=== PATIENT | female | born 1985 | race Caucasian/White ===

== ENCOUNTER 2020-02-07 23:53 | Emergency (ER) | payer BC ==
[~2020-02-07] VITALS: Ht 185.4 cm; Wt 97.7 kg
[2020-02-08] MEDS ORDERED: GABA800T4 PO (00:08)
[2020-02-08] MEDS ORDERED: VICO10TA11 PO (00:08)
[2020-02-08] MEDS ORDERED: TRAM50TA2 PO (00:08)
[2020-02-08] MEDS ORDERED: SING10TA32 PO (00:08)
[2020-02-08] MEDS ORDERED: VALT500T PO (00:08)
[2020-02-08] MEDS ORDERED: NAPR220C14 PO (00:08)
[2020-02-08] MEDS ORDERED: AMPICILLIN SOD/SULBACTAM SOD 3 GM in D5W MINI-BAG PLUS 100 ML IV ONE (00:45)
[2020-02-08] MEDS ORDERED: NS 1,000 ML IV ONE (00:45)
[2020-02-08] MEDS ORDERED: dexameTHASONE 20MG/5ML VIAL (J1100 PER 1MG) IV ONE (00:45)
[2020-02-08 01:11] LABS: BASO % 0.4 % (0.0-1.0); EOS # 0.2 10^3/uL (0.0-0.5); EOS % 1.8 % (0.0-3.0); HEMATOCRIT 39.6 % (36.0-47.0); HEMOGLOBIN 13.3 g/dl (12.0-15.5); LYMPH # 2.3 10^3/uL (1.5-5.0); LYMPH % 24.4 % (24.0-44.0); MEAN CORPUSCULAR HEMOGLOBIN 34.3 pg (27.0-33.0); MEAN CORPUSCULAR HGB CONC 33.6 g/dl (32.0-36.5); MEAN CORPUSCULAR VOLUME 102.1 fl (80.0-96.0); MONO # 0.7 10^3/uL (0.0-0.8); MONO % 6.8 % (0.0-5.0); NEUTROPHILS # 6.4 10^3/uL (1.5-8.5); NEUTROPHILS % 66.3 % (36.0-66.0); PLATELET COUNT, AUTOMATED 207 10^3/uL (150-450); RED BLOOD COUNT 3.88 10^6/uL (4.00-5.40); WHITE BLOOD COUNT 9.6 10^3/uL (4.0-10.0)
[2020-02-08 01:30] LABS: ERYTHROCYTE SEDIMENTATION RATE 5 mm/hr (0-20)
[2020-02-08 01:36] LABS: ALBUMIN 3.6 GM/DL (3.2-5.2); ALT/SGPT 19 U/L (12-78); BILIRUBIN,DIRECT < 0.1 MG/DL (0.0-0.2); BILIRUBIN,TOTAL 0.3 MG/DL (0.2-1.0); C REACTIVE PROTEIN QUANTITATIV < 0.30 MG/DL (0.00-0.30)
[2020-02-08] MEDS ORDERED: ISOVUE-370 76% 100ML VIAL As Ordered ONE (01:59)
[2020-02-08] MEDS ORDERED: ONDANSETRON 4MG/2ML VIAL IV ONE (02:15)
--- NOTE | 2020-02-08 02:23 | REPVR ---
PROCEDURE INFORMATION: Exam: CT Neck With Contrast Exam date and time: 02/08/2020 2:05 AM Age: 34 years old Clinical indication: Mass, lump, or swelling in neck; Additional info: Right jaw pain/swelling TECHNIQUE: Imaging protocol: Computed tomography images of the neck with intravenous contrast. Radiation optimization: All CT scans at this facility use at least one of these dose optimization techniques: automated exposure control; mA and/or kV adjustment per patient size (includes targeted exams where dose is matched to clinical indication); or iterative reconstruction. Contrast material: ISOVUE 370; Contrast volume: 75 ml; Contrast route: INTRAVENOUS (IV); COMPARISON: No relevant prior studies available. FINDINGS: Limitations: Artifact arising from metallic dental hardware. Nasopharynx: Unremarkable. Oropharynx: Unremarkable. No significant tonsillar enlargement. Hypopharynx: Unremarkable. Larynx: Unremarkable. Normal epiglottis. Retropharyngeal space: Unremarkable. Submandibular/Parotid glands: Normal. Glands are normal in size. Thyroid: Normal. No enlarged or calcified nodules. Lymph nodes: Unremarkable. No lymphadenopathy. Trachea: Visualized trachea is unremarkable. Lungs: Unremarkable as visualized. Bones/joints: Unremarkable. No acute fracture. Soft tissues: Unremarkable. No significant soft tissue swelling. IMPRESSION: No acute abnormality involving the soft tissues of the neck. Electronically signed by: Gerald Herrera On 02/08/2020 02:23:38 AM
[2020-02-08] MEDS ORDERED: PRED20TA PO (02:30)
[2020-02-08 02:38] VITALS: BP 122/76
== END 2020-02-08 02:41 | disposition home or self-care (01) ==
LOC: M ED 23:53
DX: K08.89 Other specified disorders of teeth and supporting structures (principal); R22.0 Localized swelling, mass and lump, head; R13.10 Dysphagia, unspecified; H57.11 Ocular pain, right eye; D64.9 Anemia, unspecified; Z91.013 Allergy to seafood; Z79.899 Other long term (current) drug therapy; Z79.891 Long term (current) use of opiate analgesic; Z79.1 Long term (current) use of non-steroidal anti-inflammatories (NSAID)
CPT/HCPCS: 70491; 80047; 80076; 83605; 84702; 85025; 85652; 86140; 87040; 96365; 96375; 99283; J1100; J2405; Q9967

== ENCOUNTER → 2020-12-18 | Outpatient (CLI) | payer BC ==
[~2020-12-18] MED LIST: GABA800T4 PO; ISOVUE-370 76% 100ML VIAL As Ordered ONE; NAPR220C14 PO; PRED20TA PO; SING10TA32 PO; TRAM50TA2 PO; VALT500T PO; VICO10TA11 PO
--- NOTE | 2020-12-18 13:34 | REP ---
INDICATION: INFERTILITY- NEED DR TO SCAN ORDER. COMPARISON: None. TECHNIQUE: The endometrium is cannulated by the attending massage therapist. Fluoroscopic guidance is provided during contrast injection and intermittent spot filming is acquired. 0.3 minutes of fluoroscopy time is utilized. FINDINGS: There is opacification of a normal shaped endometrial cavity. No filling defect or synechia is appreciated. The isthmic and ampullary segments of fallopian tubes opacify promptly and symmetrically. Bilateral tubal patency is documented. IMPRESSION: Normal hysterosalpingogram documenting bilateral tubal patency. <Electronically signed by Abelardo Goldsmith > 12/18/20 0421
== END ==
LOC: M RADPRO 12:01
PROVIDERS: ATTEND Obstetrics & Gynecology
DX: N97.9 Female infertility, unspecified (principal)
CPT/HCPCS: 58340; 74740; Q9967

== ENCOUNTER → 2021-09-05 | Outpatient (REF) | payer BC ==
[~2021-09-05] MED LIST changes: -ISOVUE-370 76% 100ML VIAL As Ordered ONE
[2021-09-05 17:11] LABS: HEMOGLOBIN 14.5 g/dl (12.0-15.5); MEAN CORPUSCULAR HGB CONC 34.5 g/dl (32.0-36.5); MEAN CORPUSCULAR VOLUME 101.4 fl (80.0-96.0); PLATELET COUNT, AUTOMATED 219 10^3/uL (150-450); RED BLOOD COUNT 4.14 10^6/uL (4.00-5.40); WHITE BLOOD COUNT 11.4 10^3/uL (4.0-10.0)
[2021-09-06 07:02] LABS: HCG, SERUM QUANTITATIVE 90399 MIU/ML
[2021-09-06 10:20] LABS: HEPATITIS B SURFACE ANTIGEN NEGATIVE (NEGATIVE)
[2021-09-06 10:48] LABS: HEPATITIS C VIRUS ABY INDEX 0.1 INDEX (<0.8)
[2021-09-06 10:49] LABS: HIV 1&2 SCREEN CENTAUR NEGATIVE (NEGATIVE)
== END ==
LOC: M LAB REF 16:42
PROVIDERS: ATTEND Obstetrics & Gynecology
DX: Z32.01 Encounter for pregnancy test, result positive (principal); O36.80X0 Pregnancy with inconclusive fetal viability, not applicable or unspecified

== ENCOUNTER 2021-12-22 11:31 | Emergency (ER) | payer BC, OTHER ==
[~2021-12-22] VITALS: Ht 185.4 cm; Wt 98.7 kg
[2021-12-22] MEDS ORDERED: diphenhydrAMINE 50MG/ML VIAL (J1200) IV STA (12:54)
[2021-12-22] MEDS ORDERED: ACETAMINOPHEN 1000MG 100ML IV BTL (OFIRMEV) (J0131 PER 10MG) IV ONE (12:55)
[2021-12-22] MEDS ORDERED: METOCLOPRAMIDE INJ 10MG/2ML VIAL (J2765 PER 1) IV ONE (12:55)
[2021-12-22 13:41] LABS: BASO % 0.2 % (0.0-1.0); EOS # 0.1 10^3/uL (0.0-0.5); EOS % 0.4 % (0.0-3.0); HEMATOCRIT 38.9 % (36.0-47.0); LYMPH # 1.4 10^3/uL (1.5-5.0); LYMPH % 10.7 % (24.0-44.0); MONO # 0.6 10^3/uL (0.0-0.8); MONO % 4.5 % (2.0-8.0); NEUTROPHILS # 10.9 10^3/uL (1.5-8.5); NEUTROPHILS % 83.7 % (36.0-66.0); PLATELET COUNT, AUTOMATED 191 10^3/uL (150-450); RED BLOOD COUNT 3.89 10^6/uL (4.00-5.40)
[2021-12-22 14:17] LABS: ALBUMIN 3.2 GM/DL (3.2-5.2); ALT/SGPT 21 U/L (12-78); BILIRUBIN,TOTAL 0.4 MG/DL (0.2-1.0); BLOOD UREA NITROGEN 8 MG/DL (7-18); CALCIUM LEVEL 8.6 MG/DL (8.5-10.1); CARBON DIOXIDE LEVEL 26 MEQ/L (21-32); CHLORIDE LEVEL 108 MEQ/L (98-107); CREATININE FOR GFR 0.43 MG/DL (0.55-1.30); GLOMERULAR FILTRATION RATE > 60.0 (>60); GLUCOSE, FASTING 82 MG/DL (70-100); POTASSIUM SERUM 4.3 MEQ/L (3.5-5.1); SODIUM LEVEL 139 MEQ/L (136-145)
[2021-12-22 15:11] VITALS: BP 123/71
== END 2021-12-22 15:18 | disposition home or self-care (01) ==
LOC: M ED 11:31
DX: O99.352 Diseases of the nervous system complicating pregnancy, second trimester (principal); R51.9 Headache, unspecified; Z3A.23 23 weeks gestation of pregnancy; Z91.013 Allergy to seafood; Z79.899 Other long term (current) drug therapy
CPT/HCPCS: 80053; 81000; 85025; 96374; 96375; 99284; J0131; J1200; J2765

== ENCOUNTER → 2022-02-21 | Outpatient (REF) | payer OTHER ==
[2022-02-21 13:35] LABS: URIC ACID 3.7 MG/DL (3.1-7.8)
[2022-02-21 13:36] LABS: LDH LACTATE DEHYDROGENASE 152 U/L (120-246)
[2022-02-21 13:38] LABS: ALT/SGPT 48 U/L (7.0-40); AST/SGOT 25 U/L (<34); BILIRUBIN,TOTAL 0.5 MG/DL (0.3-1.2); CREATININE FOR GFR 0.43 MG/DL (0.55-1.30); GLOMERULAR FILTRATION RATE > 60.0 (>60)
== END ==
LOC: M LAB REF 12:14
PROVIDERS: ATTEND Advanced Practice Midwife
DX: O14.93 Unspecified pre-eclampsia, third trimester (principal)

== ENCOUNTER → 2022-02-22 | Outpatient (REF) | payer OTHER ==
[2022-02-23 12:00] LABS: TOTAL PROTEIN 24 HOUR URINE 9.6 MG/24HR (50-80); URINE TOTAL PROTEIN 9.6 MG/DL (0-14)
[2022-02-23 12:05] LABS: CREATININE 24 HOUR, URINE 56.7 MG/24HR (600-1800); CREATININE, URINE 56.7 MG/DL
== END ==
LOC: M LAB REF 16:00
PROVIDERS: ATTEND Advanced Practice Midwife
DX: O14.93 Unspecified pre-eclampsia, third trimester (principal)

== ENCOUNTER → 2022-03-20 | Outpatient (REF) | payer OTHER | LOC: M LAB REF 12:07 | PROVIDERS: ATTEND Obstetrics & Gynecology | DX: Z34.03 Encounter for supervision of normal first pregnancy, third trimester (principal) ==

== ENCOUNTER 2022-03-21 14:31 | Outpatient (CLI) | payer OTHER ==
[~2022-03-21] VITALS: Ht 185.4 cm; Wt 113.5 kg
[2022-03-21 15:08] VITALS: BP 128/83
[2022-03-21 15:18] VITALS: BP 132/85
[2022-03-21 15:20] VITALS: BP 136/92
[2022-03-21 15:33] VITALS: BP 134/80
[2022-03-21 16:05] LABS: TOTAL PROTEIN,RANDOM URINE 12.7 MG/DL (0.0-14.0)
[2022-03-21 16:09] LABS: CREATININE,RANDOM URINE 60.5 MG/DL
[2022-03-21 16:48] LABS: HEMATOCRIT 35.2 % (36.0-47.0); HEMOGLOBIN 12.5 g/dl (12.0-15.5); MEAN CORPUSCULAR HEMOGLOBIN 36.7 pg (27.0-33.0); MEAN CORPUSCULAR HGB CONC 35.5 g/dl (32.0-36.5); MEAN CORPUSCULAR VOLUME 103.2 fl (80.0-96.0); PLATELET COUNT, AUTOMATED 157 10^3/uL (150-450); RED BLOOD COUNT 3.41 10^6/uL (4.00-5.40); WHITE BLOOD COUNT 12.1 10^3/uL (4.0-10.0)
[2022-03-21 16:57] LABS: URIC ACID 4.6 MG/DL (3.1-7.8)
[2022-03-21 17:00] LABS: ALT/SGPT 30 U/L (7.0-40); AST/SGOT 22 U/L (<34); BILIRUBIN,TOTAL 0.4 MG/DL (0.3-1.2); GLOMERULAR FILTRATION RATE > 60.0 (>60); LDH LACTATE DEHYDROGENASE 155 U/L (120-246)
== END 2022-03-21 18:00 | disposition home or self-care (01) ==
LOC: M LDO 14:31
PROVIDERS: ATTEND Advanced Practice Midwife
DX: O13.3 Gestational [pregnancy-induced] hypertension without significant proteinuria, third trimester (principal); O09.513 Supervision of elderly primigravida, third trimester; Z3A.36 36 weeks gestation of pregnancy
CPT/HCPCS: 36415; 59025; 82247; 82565; 82570; 83615; 84156; 84450; 84460; 84550; 85027; G0463

== ENCOUNTER → 2022-03-25 | Outpatient (REF) | payer OTHER ==
[2022-03-26 12:39] LABS: TOTAL PROTEIN 24 HOUR URINE 327.4 MG/24HR (50-80); URINE TOTAL PROTEIN 17.7 MG/DL (0-14)
[2022-03-26 12:44] LABS: CREATININE 24 HOUR, URINE 1457.8 MG/24HR (600-1800); CREATININE, URINE 78.8 MG/DL
== END ==
LOC: M LAB REF 11:42
PROVIDERS: ATTEND Obstetrics & Gynecology
DX: O14.93 Unspecified pre-eclampsia, third trimester (principal)

== ENCOUNTER → 2022-03-26 | Outpatient (CLI) | payer OTHER ==
[2022-03-26 12:14] LABS: BASO % 0.2 % (0.0-1.0); EOS # 0.1 10^3/uL (0.0-0.5); EOS % 0.7 % (0.0-3.0); HEMATOCRIT 40.4 % (36.0-47.0); HEMOGLOBIN 14.3 g/dl (12.0-15.5); LYMPH # 1.7 10^3/uL (1.5-5.0); LYMPH % 13.3 % (24.0-44.0); MEAN CORPUSCULAR HEMOGLOBIN 36.4 pg (27.0-33.0); MEAN CORPUSCULAR HGB CONC 35.4 g/dl (32.0-36.5); MEAN CORPUSCULAR VOLUME 102.8 fl (80.0-96.0); NEUTROPHILS % 77.3 % (36.0-66.0); PLATELET COUNT, AUTOMATED 174 10^3/uL (150-450); RED BLOOD COUNT 3.93 10^6/uL (4.00-5.40); WHITE BLOOD COUNT 12.9 10^3/uL (4.0-10.0)
[2022-03-26 12:43] LABS: LDH LACTATE DEHYDROGENASE 313 U/L (120-246)
[2022-03-26 12:45] LABS: ALT/SGPT 53 U/L (7.0-40); AST/SGOT 40 U/L (<34); BILIRUBIN,TOTAL 0.5 MG/DL (0.3-1.2); GLOMERULAR FILTRATION RATE > 60.0 (>60)
[2022-03-26 12:47] LABS: URIC ACID 4.7 MG/DL (3.1-7.8)
== END ==
LOC: M LAB 11:43
PROVIDERS: ATTEND Obstetrics & Gynecology
DX: O14.93 Unspecified pre-eclampsia, third trimester (principal)

== ENCOUNTER 2022-03-31 12:36 | Inpatient (IN) | payer OTHER ==
[2022-03-31] VITALS (14 sets, daily range): BP systolic 116–159; BP diastolic 68–100
[~2022-03-31] VITALS: Ht 185.4 cm; Wt 111.9 kg
[2022-03-31] MEDS ORDERED: PRENTAB9 PO (12:51)
[2022-03-31] MEDS ORDERED: COLA100C5 PO (12:55)
[2022-03-31] MEDS ORDERED: PEPC1TAB5 PO (12:55)
[2022-03-31] MEDS ORDERED: RA M500C PO (12:55)
[2022-03-31] MEDS ORDERED: ZYRT10TA12 PO (12:55)
[2022-03-31] MEDS ORDERED: ADDE15CA3 PO (12:55)
[2022-03-31] MEDS ORDERED: HOME MED LIST COMPLETE! XX SCH (13:00)
[2022-03-31] MEDS ORDERED: OXYTOCIN DRIP 30 UNITS in IV 1 EA IV PRN (13:20)
[2022-03-31] MEDS ORDERED: LIDOCAINE 1% MDV 20ML VIAL INFIL PRN (13:20)
[2022-03-31] MEDS ORDERED: TRANEXAMIC ACID INJection 1,000 MG in NS 100 ML IV PRN (13:20)
[2022-03-31] MEDS ORDERED: OXYTOCIN INJ 10UNITS/ML 1ML VIAL IM PRN (13:20)
[2022-03-31] MEDS ORDERED: CARBOPROST TROMETHAMINE 250 MCG/ML AMP IM PRN (13:20)
[2022-03-31 14:16] LABS: HEMATOCRIT 39.6 % (36.0-47.0); HEMOGLOBIN 14.3 g/dl (12.0-15.5); MEAN CORPUSCULAR HEMOGLOBIN 36.9 pg (27.0-33.0); MEAN CORPUSCULAR HGB CONC 36.1 g/dl (32.0-36.5); MEAN CORPUSCULAR VOLUME 102.1 fl (80.0-96.0); PLATELET COUNT, AUTOMATED 184 10^3/uL (150-450); RED BLOOD COUNT 3.88 10^6/uL (4.00-5.40); WHITE BLOOD COUNT 12.8 10^3/uL (4.0-10.0)
[2022-03-31 14:21] LABS: CREATININE,RANDOM URINE 59.9 MG/DL
[2022-03-31 14:45] LABS: URIC ACID 5.1 MG/DL (3.1-7.8)
[2022-03-31 14:47] LABS: LDH LACTATE DEHYDROGENASE 180 U/L (120-246)
[2022-03-31 14:48] LABS: ALT/SGPT 37 U/L (7.0-40); AST/SGOT 28 U/L (<34); BILIRUBIN,TOTAL 0.6 MG/DL (0.3-1.2); CREATININE FOR GFR 0.52 MG/DL (0.55-1.30); GLOMERULAR FILTRATION RATE > 60.0 (>60)
[2022-03-31] MEDS: miSOPROStol 50MCG 1/2 TABLET PO SCH ×3 (15:16→23:45)
[2022-04-01] VITALS (33 sets, daily range): BP systolic 108–151; BP diastolic 61–95
[2022-04-01] MEDS: miSOPROStol 50MCG 1/2 TABLET PO SCH ×2 (05:39→10:33)
[2022-04-01] MEDS: AMPHETAMINE/DEXTROAMPHETAMINE 5 MG *ER* CAPSULE (ADDERALL XR) PO SCH (11:17)
[2022-04-01] MEDS ORDERED: ACETAMINOPHEN 500 MG TAB PO PRN (14:50)
[2022-04-01] MEDS ORDERED: OXYTOCIN DRIP 30 UNITS in IV 1 EA IV SCH (16:20)
[2022-04-01] MEDS: LR 1,000 ML IV SCH ×2 (17:11→19:49)
[2022-04-01] MEDS ORDERED: METOCLOPRAMIDE INJ 10MG/2ML VIAL IV ONE (20:10)
[2022-04-01] MEDS ORDERED: EPIDURAL/PCA KEYS XX PRN ×2 (22:05→22:10)
[2022-04-01] MEDS ORDERED: ONDANSETRON 4MG 2ML VIAL IV PRN (22:10)
[2022-04-01] MEDS ORDERED: ePHEDrine SULFATE 25 MG/5 ML(5MG/ML) SYRINGE IVP PRN (22:10)
[2022-04-01] MEDS ORDERED: LR 500 ML IV PRN (22:10)
[2022-04-01] MEDS ORDERED: NALOXONE INJ 0.4MG/1ML VIAL IV PRN (22:10)
[2022-04-02] VITALS (57 sets, daily range): BP systolic 107–144; BP diastolic 55–95
[2022-04-02] MEDS: LR 1,000 ML IV SCH ×4 (02:33→23:40)
[2022-04-02] MEDS: FENTANYL/ROPIVACAINE/NACL BAG 100 ML EPIDURAL SCH ×3 (02:33→15:06)
[2022-04-02] MEDS: FAMOTIDINE 20 MG TAB PO SCH (09:17)
[2022-04-02] MEDS: AMPHETAMINE/DEXTROAMPHETAMINE 5 MG *ER* CAPSULE (ADDERALL XR) PO SCH (09:17)
[2022-04-02] MEDS ORDERED: PROMETHAZINE 25MG/ML 1ML VIAL IV STA (13:32)
[2022-04-02] MEDS ORDERED: ROPIvacaine 0.5% 30ML VIAL PN ONE (17:40)
[2022-04-02] MEDS ORDERED: LACTATED RINGER'S 1000 ML IV STA (18:49)
[2022-04-02] MEDS ORDERED: BICITRA 30ML SOLN UDC PO ONE (18:50)
[2022-04-02] MEDS ORDERED: ceFAZolin SOD 2 GM in IV 1 EA IV ONE (18:50)
[2022-04-02] MEDS ORDERED: AZITHROMYCIN INJ 500 MG, VIAL MATE ADAPTER 1 EACH in NS 250 ML IV ONE (18:50)
[2022-04-02] MEDS ORDERED: fentaNYL 100 MCG/2 ML INJECTION As Ordered ONE (19:52)
[2022-04-02] MEDS ORDERED: MORPHINE PRES-FREE INJ 10 MG/10 ML VIAL As Ordered ONE (19:53)
[2022-04-02] MEDS ORDERED: LIDOCAINE 2% INJ 100 MG/5 ML SYRINGE As Ordered ONE ×2 (20:07→20:21)
[2022-04-02] MEDS ORDERED: KETOROLAC 60MG 2ML VIAL As Ordered ONE (20:21)
[2022-04-02] MEDS ORDERED: ONDANSETRON 4MG 2ML VIAL As Ordered ONE (20:21)
[2022-04-02] MEDS ORDERED: ePHEDrine SULFATE 25 MG/5 ML(5MG/ML) SYRINGE As Ordered ONE (20:21)
[2022-04-02] MEDS ORDERED: PHENYLephrine 500MCG 5ML (100MCG/ML) SYRINGE As Ordered ONE (20:21)
[2022-04-02] MEDS ORDERED: OXYTOCIN DRIP 30 UNITS in IV 1 EA IV SCH ×4 (20:50)
[2022-04-02] MEDS ORDERED: SIMETHICONE 80MG CHEW TAB PO PRN (20:50)
[2022-04-02] MEDS ORDERED: RHOGAM 300MCG (1500IU) INJ IM SCH (20:50)
[2022-04-02] MEDS ORDERED: PROMETHAZINE 25 MG TAB PO PRN (20:50)
[2022-04-02] MEDS ORDERED: MOM 30ML SUSPENSION UDC PO PRN (20:50)
[2022-04-02] MEDS ORDERED: PERCOCET 5MG/325MG TAB PO PRN ×2 (20:50)
[2022-04-02] MEDS ORDERED: ONDANSETRON 4MG 2ML VIAL IV PRN (20:50)
[2022-04-02] MEDS ORDERED: OXYTOCIN 30UNITS IN 0.9% NaCl 500ML IV BAG As Ordered ONE ×2 (20:53→20:58)
[2022-04-02] MEDS: DOCUSATE SODIUM 100MG CAPSULE PO SCH (21:00)
[2022-04-02] MEDS ORDERED: PERCOCET PO (21:17)
[2022-04-02] MEDS ORDERED: IBUP80TA PO (21:17)
[2022-04-02] MEDS ORDERED: COLA100C5 PO (21:17)
[2022-04-03] VITALS (8 sets, daily range): BP systolic 123–148; BP diastolic 69–93
[2022-04-03] MEDS: KETOROLAC 30 MG/ML 1ML VIAL IV SCH ×3 (03:05→15:37)
[2022-04-03] MEDS: LR 1,000 ML IV SCH (07:17)
[2022-04-03 07:24] LABS: HEMOGLOBIN 11.7 g/dl (12.0-15.5); MEAN CORPUSCULAR HEMOGLOBIN 36.9 pg (27.0-33.0); MEAN CORPUSCULAR HGB CONC 35.5 g/dl (32.0-36.5); MEAN CORPUSCULAR VOLUME 104.1 fl (80.0-96.0); PLATELET COUNT, AUTOMATED 139 10^3/uL (150-450); RED BLOOD COUNT 3.17 10^6/uL (4.00-5.40); WHITE BLOOD COUNT 14.1 10^3/uL (4.0-10.0)
[2022-04-03] MEDS: PRENATAL VITAMINS CHEWABLE TABLET PO SCH (08:17)
[2022-04-03] MEDS: DOCUSATE SODIUM 100MG CAPSULE PO SCH ×2 (08:17→20:50)
[2022-04-03] MEDS: FAMOTIDINE 20 MG TAB PO SCH (08:17)
[2022-04-03] MEDS: AMPHETAMINE/DEXTROAMPHETAMINE 5 MG *ER* CAPSULE (ADDERALL XR) PO SCH (08:18)
[2022-04-03] MEDS: diphenhydrAMINE 50MG/ML VIAL IV PRN ×2 (12:25→20:51)
[2022-04-03] MEDS ORDERED: HYDROCORTISONE 1% OINTMENT 30GM TOP PRN (21:25)
[2022-04-03] MEDS: IBUPROFEN 800 MG TAB PO SCH (23:00)
[2022-04-04 02:00] VITALS: BP 139/80
[2022-04-04 06:00] VITALS: BP 118/72
[2022-04-04] MEDS: IBUPROFEN 800 MG TAB PO SCH (06:02)
[2022-04-04] MEDS: FAMOTIDINE 20 MG TAB PO SCH (08:55)
[2022-04-04] MEDS: DOCUSATE SODIUM 100MG CAPSULE PO SCH (08:55)
[2022-04-04] MEDS: AMPHETAMINE/DEXTROAMPHETAMINE 5 MG *ER* CAPSULE (ADDERALL XR) PO SCH (08:55)
[2022-04-04] MEDS: PRENATAL VITAMINS CHEWABLE TABLET PO SCH (08:55)
[2022-04-04] MEDS ORDERED: MEASLES,MUMPS,RUBELLA VACCINE INJ (MMR-II) SC.IMMUN ONE (09:00)
[2022-04-04 10:00] VITALS: BP 122/72
== END 2022-04-04 14:15 | disposition home or self-care (01) | DRG 540 ==
LOC: M LDO 12:36 → M LDI 13:28 → M OBS 04-02 22:53
PROVIDERS: ADMIT Advanced Practice Midwife; ATTEND Obstetrics & Gynecology
PROC: 3E0P7GC Introduction of Other Therapeutic Substance into Female Reproductive, Via Natural or Artificial Opening (ICD-10-PCS; 2022-03-31)
PROC: 10D00Z1 Extraction of Products of Conception, Low, Open Approach (ICD-10-PCS; principal; 2022-04-02 18:59)
DX: O14.94 Unspecified pre-eclampsia, complicating childbirth (principal); O98.32 Other infections with a predominantly sexual mode of transmission complicating childbirth; O64.0XX0 Obstructed labor due to incomplete rotation of fetal head, not applicable or unspecified; Z3A.37 37 weeks gestation of pregnancy; O09.513 Supervision of elderly primigravida, third trimester; O09.813 Supervision of pregnancy resulting from assisted reproductive technology, third trimester; A60.09 Herpesviral infection of other urogenital tract; O99.344 Other mental disorders complicating childbirth; F90.9 Attention-deficit hyperactivity disorder, unspecified type; Z37.0 Single live birth; Z79.899 Other long term (current) drug therapy; Z91.013 Allergy to seafood; L23.89 Allergic contact dermatitis due to other agents; O99.72 Diseases of the skin and subcutaneous tissue complicating childbirth